=== PATIENT | male | born 1970 | race Caucasian/White ===

== ENCOUNTER 2020-05-14 09:34 | Emergency (ER) | payer OTHER, SELFPAY ==
--- NOTE | ~2020-05-14 | XR_ITS ---
EXAMINATION: XR foot RT min 3V EXAM DATE: 05/14/2020 09:55 INDICATION: Initial encounter following injury, with pain of the right foot. TECHNIQUE: Right foot dorsoplantar, lateral and oblique projections obtained and reviewed. There is no prior study for comparison. FINDINGS: Right metatarsal bones unremarkable. 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 This finding has been indicated, marked on the examinatio n for review, clinical correlation. No other suspicious findings. IMPRESSION: Right 5th distal phalangeal fracture. Reviewed, dictated and finalized at location A.
[2020-05-14 09:42] VITALS: BP 142/91; PULSE 67; RESP 16; TEMP 37.1; O2SAT 99
--- NOTE | 2020-05-14 09:49 | ED.LOWEXIN ---
HPI - Extremity Injury (Lower) General Chief Complaint: Extremity Injury, Lower Stated Complaint: right foot injury Time Seen by Provider: 05/14/20 09:50 Source: patient and RN notes reviewed History of Present Illness HPI Narrative: Patient is a 49-year-old male who presents the urgent care with complaints of right foot pain with swelling. Patient states that yesterday he dropped a piece of lumber on his foot. Patient states that he was wearing flip-flops when it occurred and most of his pain is on the lateral aspect of the right foot. Patient has been putting an Balwinder wrap around the foot, elevating, using ice and taking ibuprofen as needed. Patient states that today the pain is not really severe but he is going out of town and wanted to make sure it was not fractured. No other acute complaints or injuries. No acute distress noted. Patient read the plan of care. Related Data Home Medications Medication Instructions Recorded Confirmed No Home Medications 05/14/20 05/14/20 Allergies Allergy/AdvReac Type Severity Reaction Status Date / Time No Known Allergies Allergy Verified 05/14/20 09:47 Review of Systems Review of Systems: Narrative: CONSTITUTIONAL: Denies fever, chills, or sweats. EYES: Denies visual changes, redness, or discharge. ENT: Denies rhinorrhea, congestion, sore throat, or otalgia. CARDIOVASCULAR: Denies chest pain, palpitations, or edema. RESPIRATORY: Denies cough or dyspnea. GASTROINTESTINAL: Denies abdominal pain, nausea, vomiting, or diarrhea. GENITOURINARY: Denies dysuria or hematuria. SKIN: Denies rash or itching. MUSCULOSKELETAL: Reports of right foot pain and swelling NEUROLOGIC: Denies headache, numbness, or weakness. All other systems reviewed are negative, except as documented in HPI. PMFSH Comments At the time of my signature, I reviewed and agree with the nursing past medical, surgical, social, and family history. There is no relevant family history pertinent to the patient complaint. Exam Narrative: Exam Narrative: GENERAL: This is a well-nourished, well-developed patient, in no apparent distress. HEAD: normocephalic, atraumatic. EYES: PERRL. Sclera clear/white. Vision is grossly intact. EARS: External ears normal NOSE: External nose normal with no obvious nasal discharge, nares without redness, no rhinorrhea. THROAT: Mucous membranes moist NECK: Neck supple SKIN: warm, intact with no suspicious lesions or rash, good texture and turgor. NEURO: awake, alert, and oriented to person, place and time. There were no obvious focal neurologic abnormalities. EXTREMITIES: Moderate edema to the top of the right foot with moderate ecchymosis extending to the third through fifth digits of the right foot. Positive strong right pedal pulse with capillary refill less than 2 seconds. Range of motion within normal limits with mild pain to the distal lateral aspect. Course Vital Signs Vital signs: Vital Signs Temperature 98.7 F 05/14/20 09:42 Pulse Rate 67 05/14/20 09:42 Respiratory Rate 16 05/14/20 09:42 Blood Pressure 142/91 H 05/14/20 09:42 Pulse Oximetry 99 05/14/20 09:42 Temperature 98.7 F 05/14/20 09:42 Pulse Rate 67 05/14/20 09:42 Respiratory Rate 16 05/14/20 09:42 Blood Pressure 142/91 H 05/14/20 09:42 Pulse Oximetry 99 05/14/20 09:42 Reviewed?patient is informed that they may have pre-hypertension or hypertension based on a blood pressure reading in the department. I recommend the patient call the primary care provider listed on their discharge instructions or a physician of their choice this week to arrange follow-up for further evaluation of possible pre-hypertension or hypertension. MDM - Extremity Injury (Lower) MDM Narrative Medical decision making narrative: Reviewed x-ray results with the patient. He is aware that x-ray was positive for right fifth distal phalangeal (toe) fracture. No notable fracture to the right foot. Advised the patient to mauricio johnston
== END 2020-05-14 10:18 | disposition home or self-care (01) ==
PROVIDERS: Emergency Provider Nurse Practitioner Family
DX: S92.531A Displaced fracture of distal phalanx of right lesser toe(s), initial encounter for closed fracture (principal); W20.8XXA Other cause of strike by thrown, projected or falling object, initial encounter
CPT/HCPCS: 73630; 99213; G0463